=== PATIENT | male | born 1995 | race Two or more races ===

== ENCOUNTER → 2021-01-08 | Emergency (ER) | payer SELFPAY ==
[~2021-01-08] VITALS: Ht 172.7 cm; Wt 77.1 kg
[~2021-01-08] MED LIST: DEXAMETHASONE SOD PHOSPHATE 10 MG in IV D5W 50 ML IV ONE; DEXAMETHASONE SOLN 5 MG/5 ML UDC ONE; PENI500T PO; PENICILLIN G BENZATHINE 2.4 MMU/4 ML ML IM ONE; PENICILLIN V POTASSIUM 500 MG TABLET PO ONE
[2021-01-08 04:15] VITALS: BP 129/74
--- NOTE | 2021-01-08 04:20 | NUR ---
PATIENT BIBS FOR SORE THROAT X 2DAYS. PATIENT IS A/O X 4, RR IS EVEN AND UNLABORED, NO SIGN OF SOB. PATIENT STATED NO PAIN AT THIS TIME. PATIENT IN NO ACUTE DISTRESS. WILL CONTINUE TO MONITOR.
--- NOTE | 2021-01-08 04:41 | NUR ---
DEXAMETHASONE SOD PHOSPHATE 10 MG IN D5W IV NOT GIVEN, PATINET REFUSED TO HAVE IV ACCESS, PER MD ORDER PATIENT GIVEN DECADRON PO.
--- NOTE | 2021-01-08 05:03 | NUR ---
Patient discharged to home in stable condition. Written and verbal after care instructions given. Patient verbalizes understanding of instruction.
== END | disposition home or self-care (01) ==
LOC: ER 04:20
DX: J02.0 Streptococcal pharyngitis (principal)
CPT/HCPCS: 99283; J0558 ×2; J1100; J7060; J8540 ×2